=== PATIENT | male | born 1985 | race Caucasian/White ===

== ENCOUNTER 2018-01-27 21:02 | Emergency (ER) | payer SELFPAY ==
[~2018-01-27] VITALS: Ht 180.3 cm; Wt 87.3 kg
[~2018-01-27 21:02] MED LIST: MECLIZINE HCL25 MG PO; MOBIC7.5 MG PO; NAPROSYN500 MG PO; NAPROXEN500 MG PO; PERCOCET 5/31 TABLET PO; ULTRAM50 MG PO; ZOFRAN4 MG PO
[2018-01-27] MEDS ORDERED: CLEOCIN300 MG PO (22:24)
[2018-01-27] MEDS ORDERED: MOTRIN800 MG PO (22:25)
[2018-01-27 22:34] VITALS: BP 147/82
== END 2018-01-27 22:37 | disposition home or self-care (01) ==
LOC: RME 21:02 → EME 21:02 → RME 22:37
DX: L02.411 Cutaneous abscess of right axilla (principal); Z88.2 Allergy status to sulfonamides
CPT/HCPCS: 87147; 87205; 99281; 99283